=== PATIENT | male | born 1960 | race Caucasian/White ===

== ENCOUNTER 2022-10-31 13:45 | Emergency (ER) | payer MEDICAID, SELFPAY ==
[2022-10-31] VITALS (7 sets, daily range): BP systolic 184–201; BP diastolic 89–114; PULSE 64–99; RESP 15–17; TEMP 36.6–36.7; O2SAT 99–100
--- NOTE | ~2022-10-31 | XR_ITS ---
EXAMINATION: XR chest 2V Exam Date/Time: 10/31/2022 14:55 CDT HISTORY: STABBING chest pain RADIATES TO LEFT SHOULDER X 1 DAY Comparison: None. RESULT: Lines, tubes, and devices: Median sternotomy wires. 2 wires are fractured, but remain in standard po sition. Loop recorder. Mediastinal surgical clips. Lungs and pleura: Clear. Cardiomediastinal silhouette: Unremarkable. Other: No acute osseous or upper abdominal finding. Aortic calcifications without evident aneurysm. IMPRESSION: No acute cardiopulmonary process. Fracture sternotomy wires that remain in standard position. Reviewed, dictated and finalized at location K. IMPRESSION: No acute cardiopulmonary process. Fracture sternotomy wires that remain in doug dard position.
--- NOTE | 2022-10-31 13:46 | ECG_ITS ---
Measurements Intervals [place] Rate: 70 P: -1 WV: 195 QRS: -7 QRSD: 107 T: 71 QT: 427 QTc: 462 Interpretive Statements SINUS RHYTHM LEFT VENTRICULAR HYPERTROPHY WITH ST-T CHANGE INFERIOR INFARCT, AGE INDETERMINATE ABNORMAL ECG NO PREVIOUS ECG AVAILABLE FOR COMPARISON Electronically Signed On 10-31-2022 13:52:19 CDT by Mike Medrano D.O.
[2022-10-31 17:10] LABS: Basophils Percent Auto 0.6 % (0.2-1.2); Eosinophils Absolute Auto 0.2 K/mm3 (0-0.3); Eosinophils Percent Auto 2.4 % (0-4.4); Hematocrit 44.8 % (42.0-52.0); Hemoglobin 14.5 g/dL (14.0-18.0); Immature Granulocyte Absolute 0.02 K/mm3 (0.00-0.031); Immature Granulocyte Percent A 0.3 % (0-0.5); Lymphocytes Absolute Auto 1.38 K/mm3 (0.9-3.2); Lymphocytes Percent Auto 20.6 % (18.3-44.2); Mean Corpuscular HGB Conc 32.4 g/dl (32-36); Mean Corpuscular Volume 89.6 fl (80-100); Mean Platelet Volume 11.6 fl (7.4-10.4); Monocytes Absolute Auto 0.5 K/mm3 (0.1-0.6); Neutrophils Absolute Auto 4.6 K/mm3 (1.3-6.7); Neutrophils Percent Auto 69.1 % (45.5-73.1); Platelet Count Result 208 k/mm3 (150-375); Red Cell Distribution Width 13.1 % (11.5-14.5); White Blood Count 6.7 K/mm3 (4.5-10.0)
[2022-10-31 17:25] LABS: Alanine Aminotransferase 25 U/L (6-50); Albumin Level 4.8 g/dL (3.5-5.1); Alkaline Phosphatase 140 U/L (38-126); Anion Gap 13 mmol/L (8-16); Aspartate Amino Transferase 30 U/L (17-59); Bilirubin,Total 0.9 mg/dL (0.2-1.3); Blood Urea Nitrogen 19 mg/dL (9-20); Calcium 9.6 mg/dL (8.4-10.2); Carbon Dioxide 22 mmol/L (22-30); Chloride 103 mmol/L (98-107); Estimated CRCL calculation 60 ml/min; Estimated Glomerular Filt Rate 51; Glucose 261 mg/dL (65-110); Lipase 36 U/L (23-300); Partial Thromboplastin Time 27.4 SECONDS (22.3-36.8); Potassium 4.2 mmol/L (3.4-5.0); Prothrombin Time 13.3 Seconds (11.1-14.7); Sodium 138 mmol/L (137-145)
[2022-10-31 17:36] LABS: Troponin I 0.023 ng/mL (0.000-0.034)
--- NOTE | 2022-10-31 17:43 | ED.CHESTPAIN ---
HPI - Chest Pain General Chief Complaint: Chest Pain Stated Complaint: chest pain Time Seen by Provider: 10/31/22 16:58 History of Present Illness HPI narrative: 62-year-old male present emergency department for evaluation of left-sided chest pain has been going on for 4 days. Patient reports he had recent cardiac evaluations at [facility] and [facility]. Related Data Allergies Allergy/AdvReac Type Severity Reaction Status Date / Time No Known Drug Allergies Allergy Unknown Verified 11/01/22 12:35 Review of Systems Review of Systems: All systems reviewed & are unremarkable except as noted in HPI and below Exam Narrative: APPEARANCE: Well appearing, no pain, no distress, well-nourished. HEAD: normocephalic, atraumatic. EYES: PERRLA/EOMI, conjunctivae clear. NOSE: Normal no drainage EARS:TMS clear with good light reflex. THROAT: Pharynx clear, no exudate. NECK: Supple. No adenopathy, no masses. RESPIRATORY: Airway patent, respirations nonlabored. Clear to auscultation bilaterally, no rales, rhonchi, wheezing. CARDIOVASCULAR: Regular rate and rhythm without murmurs rubs or gallops. ABDOMINAL: Soft, nontender, nondistended, normal bowel sounds MUSCULOSKELETAL: Moves all extremities. Strength/ROM intact, No edema, No calf tenderness. NEURO: Alert. Cranial nerves II through XII intact. Good gait. Good coordination SKIN: Warm, dry. Normal Color Course Course Emergency Course: 58-year-old male presented the emergency department for evaluation of intermittent chest pain. X-ray shows no acute cardiopulmonary normality. EKG showed normal sinus rhythm with no evidence of acute ischemia. Patient had negative serial troponins. Patient has had multiple recent negative cardiac evaluations. Patient was updated on results of his work-up patient was comfortable with the plan for discharge and close follow-up. Patient was encouraged of close follow-up with a primary care physician. All question concerns were addressed and patient was well-appearing at time of discharge from the emergency department. Vital Signs Vital signs: Vital Signs Temperature 98.0 F 10/31/22 13:53 Pulse Rate 64 10/31/22 13:53 Respiratory Rate 16 10/31/22 13:53 Blood Pressure 184/103 H 10/31/22 13:53 Pulse Oximetry 100 10/31/22 13:53 Oxygen Delivery Room Air 10/31/22 13:53 Temperature 97.9 F 10/31/22 19:26 Pulse Rate 99 10/31/22 19:26 Respiratory Rate 17 10/31/22 19:26 Blood Pressure 189/89 H 10/31/22 19:26 Pulse Oximetry 100 10/31/22 19:28 Oxygen Delivery Room Air 10/31/22 19:28 MDM - Chest Pain Differential Diagnosis Differential diagnosis: Likely pneumothorax, stable angina, unstable angina pectoris, atypical chest pain, st elevation myocardial infarction, costochondritis and biliary colic Lab Data Attestation: I reviewed the patient's lab results. 10/31/22 16:35 10/31/22 16:35 Labs: Lab Results 10/31/22 10/31/22 Range/Units 16:35 19:37 WBC 6.7 (4.5-10.0) K/mm3 RBC 5.00 (4.6-6.20) M/mm3 Hgb 14.5 (14.0-18.0) g/dL Hct 44.8 (42.0-52.0) % MCV 89.6 (80-100) fl MCH 29.0 (26-34) pg MCHC 32.4 (32-36) g/dl RDW 13.1 (11.5-14.5) % Plt Count 208 (150-375) k/mm3 MPV 11.6 H (7.4-10.4) fl Immature Gran % (Auto) 0.3 (0-0.5) % Neut % (Auto) 69.1 (45.5-73.1) % Lymph % (Auto) 20.6 (18.3-44.2) % [place] % (Auto) 7.0 (2.6-8.5) % Eos % (Auto) 2.4 (0-4.4) % Baso % (Auto) 0.6 (0.2-1.2) % Lymph # (Auto) 1.38 (0.9-3.2) K/mm3 [place] # (Auto) 0.5 (0.1-0.6) K/mm3 Eos # (Auto) 0.2 (0-0.3) K/mm3 Baso # (Auto) 0.0 (0.0-0.1) K/mm3 Abs Immat Gran (auto) 0.02 (0.00-0.031) K/mm3 Absolute Neuts (auto) 4.6 (1.3-6.7) K/mm3 Absolute Nucleated RBC 0.0 (0.0-0.012) K/mm3 Nucleated RBC % 0.0 (0.0-0.2) % PT 13.3 (11.1-14.7) Seconds INR 1.0 APTT 27.4 (22.3-36.8) SECONDS Sodium 138
[2022-10-31] MEDS: hydrALAZINE HCL 20 MG/ML VIAL 10 MG IV PUSH (18:44)
[2022-10-31] MEDS: HYDROmorphone HCL INJ (*CRX) 1 MG/ML SYR 0.5 MG IV PUSH ×2 (18:45→19:55)
[2022-10-31 20:13] LABS: Troponin I 0.022 ng/mL (0.000-0.034)
== END 2022-10-31 20:28 | disposition home or self-care (01) ==
PROVIDERS: Emergency Provider Emergency Medicine
DX: R07.89 Other chest pain (principal); I51.7 Cardiomegaly; R94.31 Abnormal electrocardiogram [ECG] [EKG]
CPT/HCPCS: 36415; 71046; 80053; 83690; 84484; 85025; 85610; 85730; 93005; 96374; 96376; 99284; J0360; J1170